=== PATIENT | female | born 1950 | race Caucasian/White ===

== ENCOUNTER 2022-12-02 23:51 | Inpatient (IN) | payer MEDICARE, OTHER ==
[~2022-12-02] VITALS: Ht 167.6 cm; Wt 66.2 kg
[2022-12-03] VITALS (75 sets, daily range): BP systolic 77–156; BP diastolic 41–107
--- NOTE | 2022-12-03 00:06 | NUR ---
BIBRA60 FROM [facility] C/O FEVER 102.1, TACHY HR127, HYPOTENSION 85/50. PT A/OX1 NONVERBAL. TOLERATING R/A WELL AT 96%. GTUBE INTACT. F/C FROM SNF AND DRAINING URINE. SAFETY MEASURES IN PLACE
--- NOTE | 2022-12-03 00:22 | NUR ---
URINE COLLECTED SENT TO LAB
--- NOTE | 2022-12-03 00:23 | NUR ---
RAC #20G S/L BLOOD COLLECTED AND SENT TO LAB
[2022-12-03] MEDS ORDERED: ACETAMINOPHEN 650 MG/SUPP.RECT RC ONE ×2 (00:26→00:30)
[2022-12-03] MEDS ORDERED: IV NS 0.9% 1,000 ML BAG IV ONE (00:30)
--- NOTE | 2022-12-03 00:33 | NUR ---
COVID ANTIGEN SWAB COLLECTED AND SENT TO LAB
[2022-12-03 00:53] LABS: BASOPHILS # (AUTO) 0.1 K/uL (0.0-0.2); BASOPHILS % (AUTO) 0.6 % (0.0-2.0); HEMATOCRIT 36 % (33-45); HEMOGLOBIN 11.4 g/dL (11.5-14.8); LYMPHOCYTES # (AUTO) 1.3 K/uL (0.8-4.8); LYMPHOCYTES % (AUTO) 13.3 % (20.0-44.0); MEAN CORPUSCULAR HGB CONC 32 g/dl (31.0-36.0); MEAN CORPUSCULAR VOLUME 88 fL (82-100); MONOCYTES # (AUTO) 0.6 K/uL (0.1-1.30); MONOCYTES % (AUTO) 6.1 % (2.0-12.0); NEUTROPHILS # (AUTO) 7.8 K/uL (1.8-8.9); PLATELET COUNT (AUTO) 449 K/uL (150-450); RED BLOOD CELL COUNT(AUTO) 4.04 MIL/uL (4.0-5.2); WHITE BLOOD COUNT (AUTO) 9.8 K/uL (4.3-11.0)
[2022-12-03 00:58] LABS: CALCIUM, SERUM 8.9 mg/dL (8.5-10.1); CARBON DIOXIDE 28 mmol/L (21-32); CHLORIDE 99 mmol/L (98-107); CREATININE 1.7 mg/dL (0.6-1.3); GLUCOSE 291 mg/dL (74-106); POTASSIUM 4.9 mmol/L (3.5-5.1); SODIUM SERUM 138 mmol/L (136-145); UREA NITROGEN, BLOOD 41 mg/dL (7-18)
[2022-12-03 01:02] LABS: BILIRUBIN,URINE NEGATIVE (NEGATIVE); COLOR,URINE DARK YELLOW (YELLOW); LEUKOCYTE ESTERASE ,URINE 3+ (NEGATIVE); NITRITE, URINE POSITIVE (NEGATIVE); PROTEIN,URINE 3+ mg/dl (NEGATIVE); UGLUCOSE 1+ mg/dL (NEGATIVE)
[2022-12-03 01:04] LABS: PH,URINE >9.0 (5.0-8.0)
--- NOTE | 2022-12-03 01:04 | NUR ---
CALLED FOR CHEST X-RAY
[2022-12-03 01:05] LABS: BACTERIA,URINE Moderate /HPF (None Seen); SQUAMOUS EPITHELIAL CELL,UR Few /HPF (None Seen); WBC,URINE 51-80 /HPF (0-3)
--- NOTE | 2022-12-03 01:07 | NUR ---
TROPONIN 157 RESULT REPORT[address] FROM LAB. DR. WASHINGTON AWARE.
--- NOTE | 2022-12-03 01:11 | NUR ---
X-RAY AT BEDSIDE
[2022-12-03 01:12] LABS: ALANINE AMINOTRANSFERASE 21 U/L (12-78); ALBUMIN 2.2 g/dL (3.4-5.0); ALKALINE PHOSPHATASE 81 U/L (46-116); ASPARTATE AMINOTRANSFERASE 16 U/L (15-37); BILIRUBIN,DIRECT 0.1 mg/dL (0.0-0.2); BILIRUBIN,TOTAL 0.5 mg/dL (0.2-1.0); TOTAL PROTEIN, SERUM 7.1 g/dL (6.4-8.2)
[2022-12-03] MEDS ORDERED: CEFTRIAXONE 1GM BAG (ER ONLY) 50 ML IV ONE (01:28)
[2022-12-03] MEDS ORDERED: ASPIRIN 300 MG/SUPP.RECT RC ONE ×2 (01:30→01:31)
[2022-12-03] MEDS ORDERED: CEFTRIAXONE 1GM BAG (ER ONLY) 1 GM/50 ML PIGGYBACK IV ONE (01:30)
[2022-12-03] MEDS ORDERED: AZITHROMYCIN 500 MG in IV D5W 250 ML IV ONE (01:30)
[2022-12-03] MEDS ORDERED: AZITHROMYCIN 500 MG VIAL ONE (01:48)
[2022-12-03] MEDS ORDERED: ALBUMIN 25% 50 ML IV ONE (02:12)
[2022-12-03] MEDS ORDERED: ALBUMIN 25% 12.5 GM/50 ML BOTTLE IV ONE (02:30)
--- NOTE | 2022-12-03 02:32 | NUR ---
LAB AT BEDSIDE
[2022-12-03] MEDS ORDERED: BALS5OIN TP (02:52)
[2022-12-03] MEDS ORDERED: ZINC220C6 PO (02:52)
[2022-12-03] MEDS ORDERED: INSU100V39 SQ (02:52)
[2022-12-03] MEDS ORDERED: GABA300C GT (02:52)
[2022-12-03] MEDS ORDERED: ASCO-352 GT (02:52)
[2022-12-03] MEDS ORDERED: MIDO5TAB4 GT (02:52)
[2022-12-03] MEDS ORDERED: LACT10SO3 GT (02:52)
[2022-12-03] MEDS ORDERED: GLIP10TA11 GT (02:52)
[2022-12-03] MEDS ORDERED: CALC-903 GT (02:52)
[2022-12-03] MEDS ORDERED: PIOG30TA10 GT (02:52)
[2022-12-03] MEDS ORDERED: ENOX40DI SQ (02:52)
[2022-12-03] MEDS ORDERED: PRAV20TA4 GT (02:52)
[2022-12-03] MEDS ORDERED: FOLI0.4T6 GT (02:52)
[2022-12-03] MEDS ORDERED: PROTEIN GT (02:52)
[2022-12-03] MEDS ORDERED: METF-442 GT (02:52)
[2022-12-03] MEDS ORDERED: OMEP1PAC7 GT (02:52)
[2022-12-03] MEDS ORDERED: DEXTROSE 50%-WATER 50 ML DISP.SYRIN IV PRN (03:30)
--- NOTE | 2022-12-03 03:56 | NUR ---
LACTIC ACID 5.[address] WASHINGTON AWARE
[2022-12-03] MEDS ORDERED: NOREPINEPHRINE 8 MG in IV NS 0.9% 242 ML IV PRN (04:00)
[2022-12-03] MEDS: MIDODRINE HCL (5MG) 5 MG TABLET PEG SCH ×4 (04:20→17:05)
--- NOTE | 2022-12-03 04:21 | NUR ---
REPORT GIVEN TO [facility] ICU
[2022-12-03] MEDS ORDERED: NOREPINEPHRINE 8MG/250ML RTU 250 ML IV ONE (04:29)
[2022-12-03] MEDS: NOREPINEPHRINE 8 MG in IV NS 0.9% 242 ML IV PRN (04:30)
--- NOTE | 2022-12-03 04:55 | NUR ---
ANIMAL HANDLER NOTES ADMITTED A 72 Y/O FEMALE PATIENT FROM ER VIA [facility], WITH DX OF UTI, 2ND DX SEPSIS WITH HX OF COPD, HTN, ENCEPHALOPATHY, GTUBE, GERD, NEUROPATHY. ON NASAL CANULA @ 2LPM SATING AT 96%. WITH TEMP- 102.5 FAHRENHEIT, NO SOB NOTED, NO S/S OF DISTRESS NOTED. WITH RAC # 20 AND LEFT WRIST # 24 PERIPHERAL LINE, FLUSHED WITH NS NO S/S OF DISTRESS NOTED. V/S TAKEN AND RECORDED. BODY ASSESSMENT DONE, PLACED PHOTO ON PT. CHART. COOLING MEASURE PROVIDED, PLACED COOLING BLANKET. ALL SAFETY PRECAUTION PROVIDED. BED IN LOWEST POSITION. LOCKED. CALL LIGHT WITH IN REACH.
--- NOTE | 2022-12-03 04:57 | NUR ---
RN NOTES RECEIVED LEVO @ 0.05 MCG/SHELLY/MIN FROM ER.
[2022-12-03] MEDS ORDERED: PIPERACILLIN /TAZOBACTAM 2.25 G in IV D5W 50 ML IV SCH (05:00)
--- NOTE | 2022-12-03 05:01 | NUR ---
PT TRANSFERED TO 258 ICU VIA ACLS PROTOCOL
[2022-12-03] MEDS ORDERED: PIPERCILLIN/TAZOBACTAM 2.25GM/D5W 50MLPB IV ONE (05:05)
[2022-12-03] MEDS: BLOOD SUGAR DIAGNOSTIC 1 EACH STRIP IN SCH ×4 (06:07→23:52)
--- NOTE | 2022-12-03 06:10 | NUR ---
RN NOTES NOTIFIED DR SOTO REGARDING LATEST BLOOD SUGAR- 407 mg/dL WITH NEW ORDER LANTUS 20 UNITS DAILY NOTED AND CARRIED OUT.
[2022-12-03] MEDS ORDERED: INSULIN REGULAR, HUMAN 100 UNIT/ML 3 ML VIAL ONE (06:11)
[2022-12-03] MEDS: INSULIN REGULAR, HUMAN 100 UNIT/ML 3 ML VIAL SQ PRN ×4 (06:16→23:53)
[2022-12-03] MEDS: ACETAMINOPHEN 650 MG/20.3 ML UDC GT PRN ×3 (06:17→22:03)
[2022-12-03] MEDS ORDERED: JEVITY 1.2 CAL 1,000 ML BOTTLE GT PRN (07:30)
[2022-12-03] MEDS: IV NS 0.9% 1,000 ML IV PRN ×2 (07:37→17:00)
[2022-12-03] MEDS ORDERED: Z GUARD REMEDY 4 OZ OINT TP PRN (08:30)
[2022-12-03] MEDS: ZINC SULFATE 220 MG CAPSULE GT SCH (08:32)
[2022-12-03] MEDS: ASCORBIC ACID 500 MG TABLET GT SCH (08:32)
[2022-12-03] MEDS: LACTULOSE 10 G/15 ML UDC (PYXIS) GT SCH ×2 (08:32→17:05)
[2022-12-03] MEDS: FOLIC ACID 1 MG TABLET GT SCH (08:33)
[2022-12-03] MEDS: CALCIUM CARBONATE (1250) 500 MG TABLET GT SCH ×2 (08:33→17:05)
[2022-12-03] MEDS: PANTOPRAZOLE 40 MG/PACK PACK GT SCH (08:33)
[2022-12-03] MEDS: HEPARIN SODIUM, PORCINE 5000 UNITS/1 ML VIAL SQ SCH ×2 (08:35→21:03)
[2022-12-03] MEDS: Z GUARD REMEDY 4 OZ OINT TP SCH (08:51)
[2022-12-03] MEDS: CLOTRIMAZOLE 1% 15 GM TUBE TP SCH ×2 (08:51→17:20)
[2022-12-03] MEDS ORDERED: CASTOR OIL TP SCH (09:00)
[2022-12-03] MEDS ORDERED: IV NS 0.9% 500 ML IV ONE (09:00)
[2022-12-03] MEDS ORDERED: BALSAM PERU TP SCH (09:00)
[2022-12-03] MEDS ORDERED: INSULIN GLARGINE, 100 UNIT/ML CARTRIDGE SQ SCH (09:00)
[2022-12-03] MEDS: PROSOURCE / PROSTAT (PYXIS) 30 ML UDC GT SCH ×2 (09:14→17:20)
[2022-12-03] MEDS: GLUCERNA 1.2 1,000 ML BOTTLE NG PRN (09:18)
[2022-12-03] MEDS ORDERED: NA P133E RC (09:45)
[2022-12-03] MEDS ORDERED: BISA10SU11 RC (09:45)
[2022-12-03] MEDS ORDERED: LACT-96 GT (09:45)
[2022-12-03] MEDS ORDERED: DOCU-141 GT (09:45)
[2022-12-03] MEDS ORDERED: SENN-261 GT (09:45)
[2022-12-03] MEDS ORDERED: MAGN400O6 GT (09:45)
[2022-12-03] MEDS ORDERED: INSU100V27 SQ (09:45)
[2022-12-03] MEDS ORDERED: ACET-868 GT (09:45)
[2022-12-03] MEDS ORDERED: MULT-447 GT (09:45)
[2022-12-03] MEDS ORDERED: CHOL100043 GT (09:45)
[2022-12-03] MEDS ORDERED: MAG30ORA PO (09:45)
--- NOTE | 2022-12-03 11:00 | NUR ---
RN NOTES HOLDING FEEDING AT THIS TIME, PT'S RESIDUAL IS 100 ML AT THIS TIME.
[2022-12-03] MEDS: PIPERACILLIN /TAZOBACTAM 2.25 G in IV D5W 50 ML IV SCH ×3 (11:52→23:46)
--- NOTE | 2022-12-03 19:22 | NUR ---
RN NOTES PT LOOKS COMFORTABLE, NO SIGNS OF PAIN AT THIS TIME. PT STILL ON LEVOPHED AND CONT IV FLUIDS. WOUND CARE COMPLETED FOR PT ON MY SHIFT. PT TOLERATED FEEDING THUS FAR. REPORT GIVEN TO JOSH REYNOSO FOR CONTINUATION OF CARE.
--- NOTE | 2022-12-03 19:30 | NUR ---
RN NOTE REPORT RECEIVED FROM MYLES REYNOSO, PT IN BED, IN NO ACUTE DISTRESS, AO X 1, BREATHING UNLABORED, SATURATION AT 100% ON 2L VIA NC, ST ON THE MONITOR, HR IS 114. IV LINE AT RAC 20G, AND L WRIST 24G PATENT AND FLUSHING WELL, WITH NS INFUSING AT 100 ML/HR, AND LEVOPHED AT 0.1 MCG/KG/MIN. GTUBE IN PLACE, POSITIVE PLACEMENT NOTED, NO RESIDUAL, GLUCERNA RUNNING AT 20 ML/HR. DASILVA CATHETER DRAINING TO A CLOUDY, YELLOW OUTPUT WITH SEDIMENTS. SAFETY MEASURES IN PLACE, BED IS LOCKED AND AT LOWEST POSITION, HOB ELEVATED, CALL LIGHT WITHIN REACH OF PATIENT. WILL CONTINUE TO MONITOR AND REASSESS.
[2022-12-03] MEDS: ATORVASTATIN 10 MG TABLET GT SCH (21:03)
[2022-12-03] MEDS: THERAHONEY GEL 1.5 OZ TUBE TP SCH (22:30)
[2022-12-04] VITALS (55 sets, daily range): BP systolic 88–135; BP diastolic 40–74
[2022-12-04] MEDS: NOREPINEPHRINE 8 MG in IV NS 0.9% 242 ML IV PRN (02:58)
[2022-12-04] MEDS: IV NS 0.9% 1,000 ML IV PRN ×2 (04:01→04:05)
[2022-12-04] MEDS: BLOOD SUGAR DIAGNOSTIC 1 EACH STRIP IN SCH ×3 (05:09→18:01)
[2022-12-04 05:10] LABS: BASOPHILS % (AUTO) 0.2 % (0.0-2.0); EOSINOPHILS % (AUTO) 0.2 % (0.0-6.0); HEMATOCRIT 28 % (33-45); LYMPHOCYTES # (AUTO) 1.2 K/uL (0.8-4.8); LYMPHOCYTES % (AUTO) 8.2 % (20.0-44.0); MEAN CORPUSCULAR HGB CONC 32 g/dl (31.0-36.0); MEAN CORPUSCULAR VOLUME 87 fL (82-100); MONOCYTES # (AUTO) 0.5 K/uL (0.1-1.30); MONOCYTES % (AUTO) 3.4 % (2.0-12.0); NEUTROPHILS # (AUTO) 13.1 K/uL (1.8-8.9); PLATELET COUNT (AUTO) 318 K/uL (150-450); RED BLOOD CELL COUNT(AUTO) 3.26 MIL/uL (4.0-5.2); WHITE BLOOD COUNT (AUTO) 14.9 K/uL (4.3-11.0)
[2022-12-04] MEDS: INSULIN REGULAR, HUMAN 100 UNIT/ML 3 ML VIAL SQ PRN ×3 (05:10→18:00)
[2022-12-04] MEDS: ACETAMINOPHEN 650 MG/20.3 ML UDC GT PRN (06:00)
[2022-12-04 07:02] LABS: CALCIUM, SERUM 7.9 mg/dL (8.5-10.1); CARBON DIOXIDE 22 mmol/L (21-32); CHLORIDE 104 mmol/L (98-107); CREATININE 0.7 mg/dL (0.6-1.3); GLUCOSE 315 mg/dL (74-106); UREA NITROGEN, BLOOD 27 mg/dL (7-18)
[2022-12-04 07:11] LABS: SODIUM SERUM 138 mmol/L (136-145)
[2022-12-04 07:14] LABS: POTASSIUM 2.7 mmol/L (3.5-5.1)
--- NOTE | 2022-12-04 07:47 | NUR ---
ICU/RN PT IS RESTING .ON 2L N/C SAT O2-92%.AWAKE,ALERT.CONFUSED AND AGGRESSIVE.ON LEVOPHED DRIP.RIGHT UPPER ARM PICC LINE.T-99.9.G-TUBE INFUSING WITH GLUCERNA.F/C DRAINING WITH YELLOW URINE.RECTAL TUBE DRAINING WITH BROWN LIQUID STOOL. REPOSITION FOR COMFORT.LABS REVIEW K-2.7. MD NOTIFIED.PT IS ON LACTULOSE BID.
[2022-12-04] MEDS: LACTULOSE 10 G/15 ML UDC (PYXIS) GT SCH (07:53)
[2022-12-04] MEDS: ASCORBIC ACID 500 MG TABLET GT SCH (08:15)
[2022-12-04] MEDS: PROSOURCE / PROSTAT (PYXIS) 30 ML UDC GT SCH ×2 (08:15→16:15)
[2022-12-04] MEDS: FOLIC ACID 1 MG TABLET GT SCH (08:15)
[2022-12-04] MEDS: PANTOPRAZOLE 40 MG/PACK PACK GT SCH (08:15)
[2022-12-04] MEDS: CALCIUM CARBONATE (1250) 500 MG TABLET GT SCH ×2 (08:15→16:14)
[2022-12-04] MEDS: ZINC SULFATE 220 MG CAPSULE GT SCH (08:16)
[2022-12-04] MEDS: CLOTRIMAZOLE 1% 15 GM TUBE TP SCH ×2 (08:16→16:15)
[2022-12-04] MEDS: MIDODRINE HCL (5MG) 5 MG TABLET PEG SCH ×3 (08:16→16:14)
[2022-12-04] MEDS: THERAHONEY GEL 1.5 OZ TUBE TP SCH (08:17)
[2022-12-04] MEDS: Z GUARD REMEDY 4 OZ OINT TP SCH (08:17)
[2022-12-04] MEDS: HEPARIN SODIUM, PORCINE 5000 UNITS/1 ML VIAL SQ SCH ×2 (08:20→21:18)
[2022-12-04] MEDS: POTASSIUM CHLORIDE 20 MEQ TAB.PRT.SR PO ONE ×2 (08:30→09:19)
[2022-12-04] MEDS ORDERED: IV NS 0.9% 500 ML IV ONE (08:30)
[2022-12-04] MEDS ORDERED: Potassium Chloride 20 MEQ in IV NS 0.9% 1,000 ML IV PRN (08:30)
[2022-12-04] MEDS ORDERED: INSULIN GLARGINE, 100 UNIT/ML CARTRIDGE SQ SCH ×2 (09:00)
[2022-12-04] MEDS ORDERED: PIPERACILLIN /TAZOBACTAM 3.375 G in IV D5W 100 ML IV SCH (09:00)
--- NOTE | 2022-12-04 09:00 | NUR ---
ICU/RN UNABLE TO GIVE KDUR 80 MEQ VIA G-TUBE. KLOR ORDERED. KDURE WASTED.PHARMACY NOTIFIED
[2022-12-04] MEDS: PIPERACILLIN /TAZOBACTAM 3.375 G in IV D5W 100 ML IV SCH ×2 (12:11→21:17)
[2022-12-04] MEDS: GLUCERNA 1.2 1,000 ML BOTTLE NG PRN (12:23)
[2022-12-04] MEDS ORDERED: POTASSIUM CHLORIDE 20 MEQ POWDER PACKET GT ONE (13:00)
[2022-12-04] MEDS: Potassium Chloride 20 MEQ in IV NS 0.9% 1,000 ML IV SCH ×2 (14:04→19:05)
[2022-12-04] MEDS: ATORVASTATIN 10 MG TABLET GT SCH (21:18)
[2022-12-05] VITALS (21 sets, daily range): BP systolic 89–133; BP diastolic 48–76
[2022-12-05] MEDS: BLOOD SUGAR DIAGNOSTIC 1 EACH STRIP IN SCH ×5 (00:27→23:29)
[2022-12-05] MEDS: INSULIN REGULAR, HUMAN 100 UNIT/ML 3 ML VIAL SQ PRN ×5 (00:34→23:39)
--- NOTE | 2022-12-05 01:22 | NUR ---
MS RN OPENING NOTE RECEIVED PATIENT FROM AM NURSE; PATIENT IS A/O X 0-1, CONFUSED; STABLE ON ROOM AIR, BREATHING EVENLY AND NO S/S OF DISTRESS NOTED; NOTED TO BE COMBATIVE AND AGGRESSIVE; WITH PICC LINE ACCESS AT YOUNG AND RAC G#20 EUNNING WITH NS KCL 20MEQ AT 100 ML/HR; ON LEFT HAND RESTRAINT FOR PATIENT'S SAFETY; WITH FLEXISEAL IN PLACE; WITH DASILVA CATH IN PLACE DRAINING TO YELLOW COLORED URINE; SAFETY MEASURES IMPLEMENTED, BED LOCKED IN LOWEST POSITION, SIDE RAILS UP X 3, HEAD OF BED ELEVATED; CALL LIGHT WITHIN REACH; WILL CONTINUE TO MONITOR THROUGHOUT SHIFT Addendum: 12/06/22 at 0126 by KATHERINE MOJICA RN ERROR. WRONG TIME ENTRY
[2022-12-05] MEDS: Potassium Chloride 20 MEQ in IV NS 0.9% 1,000 ML IV SCH ×2 (04:46→14:43)
[2022-12-05] MEDS: PIPERACILLIN /TAZOBACTAM 3.375 G in IV D5W 100 ML IV SCH ×3 (04:46→21:36)
[2022-12-05 05:01] LABS: BASOPHILS % (AUTO) 0.3 % (0.0-2.0); EOSINOPHILS % (AUTO) 1.1 % (0.0-6.0); HEMATOCRIT 22 % (33-45); LYMPHOCYTES # (AUTO) 1.2 K/uL (0.8-4.8); LYMPHOCYTES % (AUTO) 9.8 % (20.0-44.0); MEAN CORPUSCULAR HGB CONC 32 g/dl (31.0-36.0); MEAN CORPUSCULAR VOLUME 87 fL (82-100); MONOCYTES # (AUTO) 0.6 K/uL (0.1-1.30); MONOCYTES % (AUTO) 4.5 % (2.0-12.0); NEUTROPHILS # (AUTO) 10.4 K/uL (1.8-8.9); NEUTROPHILS % (AUTO) 84.3 % (43.0-81.0); PLATELET COUNT (AUTO) 257 K/uL (150-450); RED BLOOD CELL COUNT(AUTO) 2.54 MIL/uL (4.0-5.2); WHITE BLOOD COUNT (AUTO) 12.3 K/uL (4.3-11.0)
[2022-12-05 05:12] LABS: CALCIUM, SERUM 7.9 mg/dL (8.5-10.1); CARBON DIOXIDE 23 mmol/L (21-32); CREATININE 0.5 mg/dL (0.6-1.3); GLUCOSE 174 mg/dL (74-106); MAGNESIUM 1.8 mg/dL (1.8-2.4); UREA NITROGEN, BLOOD 21 mg/dL (7-18)
[2022-12-05 05:15] LABS: IRON, SERUM 11 ug/dl (50-175); TOTAL IRON BINDING CAPACITY 111 ug/dl (250-450)
[2022-12-05 05:18] LABS: CHLORIDE 113 mmol/L (98-107); POTASSIUM 4.3 mmol/L (3.5-5.1); SODIUM SERUM 145 mmol/L (136-145)
--- NOTE | 2022-12-05 06:08 | NUR ---
ICU/RN: H/H 7. RELAYED TO DR. SOTO AWAITING REPLY.
--- NOTE | 2022-12-05 06:13 | NUR ---
ICU/RN: SPOKE WITH DR. SOTO 1UNIT PRBC ORDERED.
--- NOTE | 2022-12-05 06:26 | NUR ---
ICU/RN: CONSENT FOR BLOOD TRANSFUSION OBTAINED BY TELEPHONE BY KADE. WITNESSED BY SCAFFOLD ERECTOR ED.
[2022-12-05] MEDS: MIDODRINE HCL (5MG) 5 MG TABLET PEG SCH ×3 (08:56→17:06)
[2022-12-05] MEDS: PROSOURCE / PROSTAT (PYXIS) 30 ML UDC GT SCH ×2 (08:56→17:08)
[2022-12-05] MEDS: ASCORBIC ACID 500 MG TABLET GT SCH (08:56)
[2022-12-05] MEDS: FOLIC ACID 1 MG TABLET GT SCH (08:56)
[2022-12-05] MEDS: PANTOPRAZOLE 40 MG/PACK PACK GT SCH (08:56)
[2022-12-05] MEDS: THERAHONEY GEL 1.5 OZ TUBE TP SCH (08:57)
[2022-12-05] MEDS: CLOTRIMAZOLE 1% 15 GM TUBE TP SCH ×2 (08:57→17:08)
[2022-12-05] MEDS: HEPARIN SODIUM, PORCINE 5000 UNITS/1 ML VIAL SQ SCH ×2 (08:58→21:00)
--- NOTE | 2022-12-05 08:59 | NUR ---
RN NOTES HELD BLOOD THINNER AT THIS TIME DUE TO LOW HGB AT 7.
[2022-12-05] MEDS ORDERED: INSULIN GLARGINE, 100 UNIT/ML CARTRIDGE SQ SCH (09:00)
[2022-12-05] MEDS: Z GUARD REMEDY 4 OZ OINT TP SCH (09:01)
[2022-12-05] MEDS: CALCIUM CARBONATE (1250) 500 MG TABLET GT SCH ×2 (09:10→17:06)
[2022-12-05] MEDS: ZINC SULFATE 220 MG CAPSULE GT SCH (09:10)
[2022-12-05] MEDS: GLUCERNA 1.2 1,000 ML BOTTLE NG PRN (11:10)
[2022-12-05] MEDS: SOD FERRIC GLUC 125 MG in IV NS 0.9% 100 ML IV SCH (14:27)
--- NOTE | 2022-12-05 17:15 | NUR ---
RN CLOSING NOTES PT LOOKS COMFORTABLE, NO VISUAL SIGNS OF PAIN AT THIS TIME, STABLE. PT BEING DOWNGRADED TO MED/SURG STATUS IN ROOM 120. REPORT GIVEN TO IDALIA REYNOSO FOR CONTINUATION OF CARE.
--- NOTE | 2022-12-05 17:45 | NUR ---
VOCATIONAL GUIDANCE COUNSELOR NOTE PATIENT BROUGHT FROM ICU , PATIENT IS ON ROOM AIR , O2 SAT 98 % ,BREATHING NON LABORED ALERT , CONFUSED, COMBATIVE, HAS LEFT HAND RESTRAIN , DUE TO TRYING TO REMOVE IV LINES ,IV ACCESS ON YOUNG PICC LINE , RAC 20 G RUNNING NS KCL20 MEQ AT 100 ML/HR , PATIENT HAD ONE UNIT OF BLOOD TRANSFUSED EARLIER TODAY AT ICU , HAS FLEXESEAL AND DASILVA CATH DRAINING CLEAR YELLOW URINE , ALSO PATIENT HAS DTI ON COCCUX AREA WITH WOUND TREATMENT: CLEASE WITH NS , PAT DRY , APPLY TERAHONEY , COVER WITH MEPILEX EVERY SHIFT .WILL CONTINUE TO MONITOR
--- NOTE | 2022-12-05 18:36 | NUR ---
RN CLOSING NOTE PATIENT IS ON ROOM AIR , O2 SAT 98 % ,BREATHING NON LABORED ALERT , CONFUSED, COMBATIVE, HAS LEFT HAND RESTRAIN , DUE TO TRYING TO REMOVE IV LINES ,IV ACCESS ON YOUNG PICC LINE , RAC 20 G RUNNING NS KCL20 MEQ AT 100 ML/HR , PATIENT HAD ONE UNIT OF BLOOD TRANSFUSED EARLIER TODAY AT ICU , HAS FLEXESEAL AND DASILVA CATH DRAINING CLEAR YELLOW URINE , ALSO PATIENT HAS DTI ON COCCUX AREA WITH WOUND TREATMENT: CLEASE WITH NS , PAT DRY , APPLY TERAHONEY , COVER WITH MEPILEX EVERY SHIFT .DELORES FIELD MARKETING COORDINATOR NURSE FOR YUE.
--- NOTE | 2022-12-05 19:30 | NUR ---
MS RN OPENING NOTE RECEIVED PATIENT FROM AM NURSE; PATIENT IS A/O X 0-1, CONFUSED; STABLE ON ROOM AIR, BREATHING EVENLY AND NO S/S OF DISTRESS NOTED; NOTED TO BE COMBATIVE AND AGGRESSIVE; WITH PICC LINE ACCESS AT YOUNG AND RAC G#20 EUNNING WITH NS KCL 20MEQ AT 100 ML/HR; ON LEFT HAND RESTRAINT FOR PATIENT'S SAFETY; WITH FLEXISEAL IN PLACE; WITH DASILVA CATH IN PLACE DRAINING TO YELLOW COLORED URINE; SAFETY MEASURES IMPLEMENTED, BED LOCKED IN LOWEST POSITION, SIDE RAILS UP X 3, HEAD OF BED ELEVATED; CALL LIGHT WITHIN REACH; WILL CONTINUE TO MONITOR THROUGHOUT SHIFT
[2022-12-05] MEDS: ATORVASTATIN 10 MG TABLET GT SCH (22:03)
[2022-12-06] MEDS: Potassium Chloride 20 MEQ in IV NS 0.9% 1,000 ML IV SCH (01:27)
[2022-12-06] MEDS: GLUCERNA 1.2 1,000 ML BOTTLE NG PRN (03:46)
[2022-12-06] MEDS: PIPERACILLIN /TAZOBACTAM 3.375 G in IV D5W 100 ML IV SCH ×3 (04:32→22:09)
[2022-12-06] MEDS: BLOOD SUGAR DIAGNOSTIC 1 EACH STRIP IN SCH ×4 (05:43→23:39)
[2022-12-06] MEDS: INSULIN REGULAR, HUMAN 100 UNIT/ML 3 ML VIAL SQ PRN ×3 (05:49→18:09)
--- NOTE | 2022-12-06 06:53 | NUR ---
MS RN CLOSING NOTE PATIENT IS A/O X 0-1, CONFUSED; STABLE ON ROOM AIR, BREATHING EVENLY AND NO S/S OF DISTRESS NOTED; NOTED TO BE COMBATIVE AND AGGRESSIVE; WITH PICC LINE ACCESS AT YOUNG RUNNING WITH ZOSYN AT THIS TIME AND RAC G#20 RUNNING WITH NS KCL 20MEQ AT 100 ML/HR; ON LEFT HAND RESTRAINT FOR PATIENT'S SAFETY; WITH FLEXISEAL IN PLACE DRAINING TO LIGHT BROWN LIQUID CONSISTENCY STOOL; WITH DASILVA CATH IN PLACE DRAINING TO YELLOW COLORED URINE; WOUND CARE DONE; ADMINISTERED MEDICATIONS PRESCRIBED; PATIENT'S NEEDS ATTENDED; MONITORED PATIENT ACCORDINGLY; SAFETY MEASURES IMPLEMENTED, BED LOCKED IN LOWEST POSITION, SIDE RAILS UP X 3; CALL LIGHT WITHIN REACH; WILL ENDORSE TO AM NURSE FOR YUE.
--- NOTE | 2022-12-06 07:10 | NUR ---
REGIONAL PRODUCTION MANAGER OPENING NOTE PATIENT AWAKE, CONFUSED, ON RA 02 SAT 97% NO RESPIRATORY DISTRESS NOTED, HOB ELEVATED, GT- FEEDING AT 60ML/HR TOLERATING WELL NO RESIDUAL NOTED. IV ACCESS TO RAC INTACT AND LEFT UPPER ARM PICC LINE INTACT. COMFORT MEASURES IN PLACE. BED ELEVATED SIDE RAILS UP X4, ON BILATERAL WRIST RESTRAINS FOLLOWING PROTOCOL. CALL LIGHT, TABLE WITHIN REACH. CONT. TO MONITOR.
[2022-12-06 08:40] LABS: BASOPHILS % (AUTO) 0.6 % (0.0-2.0); EOSINOPHILS % (AUTO) 1.4 % (0.0-6.0); HEMATOCRIT 27 % (33-45); HEMOGLOBIN 8.8 g/dL (11.5-14.8); LYMPHOCYTES # (AUTO) 1.2 K/uL (0.8-4.8); LYMPHOCYTES % (AUTO) 13.4 % (20.0-44.0); MEAN CORPUSCULAR HGB CONC 32 g/dl (31.0-36.0); MEAN CORPUSCULAR VOLUME 88 fL (82-100); MONOCYTES # (AUTO) 0.4 K/uL (0.1-1.30); NEUTROPHILS # (AUTO) 6.9 K/uL (1.8-8.9); NEUTROPHILS % (AUTO) 79.6 % (43.0-81.0); PLATELET COUNT (AUTO) 237 K/uL (150-450); RED BLOOD CELL COUNT(AUTO) 3.08 MIL/uL (4.0-5.2); WHITE BLOOD COUNT (AUTO) 8.7 K/uL (4.3-11.0)
[2022-12-06 08:47] LABS: CALCIUM, SERUM 7.5 mg/dL (8.5-10.1); CARBON DIOXIDE 23 mmol/L (21-32); CHLORIDE 112 mmol/L (98-107); CREATININE 0.5 mg/dL (0.6-1.3); GLUCOSE 212 mg/dL (74-106); SODIUM SERUM 145 mmol/L (136-145); UREA NITROGEN, BLOOD 16 mg/dL (7-18)
[2022-12-06] MEDS: Z GUARD REMEDY 4 OZ OINT TP SCH (09:00)
[2022-12-06] MEDS: CLOTRIMAZOLE 1% 15 GM TUBE TP SCH ×2 (09:00→17:00)
[2022-12-06] MEDS: THERAHONEY GEL 1.5 OZ TUBE TP SCH (09:00)
[2022-12-06] MEDS: INSULIN GLARGINE, 100 UNIT/ML CARTRIDGE SQ SCH ×2 (09:00→12:43)
[2022-12-06] MEDS: ASCORBIC ACID 500 MG TABLET GT SCH (10:38)
[2022-12-06] MEDS: ZINC SULFATE 220 MG CAPSULE GT SCH (10:38)
[2022-12-06] MEDS: FOLIC ACID 1 MG TABLET GT SCH (10:39)
[2022-12-06] MEDS: CALCIUM CARBONATE (1250) 500 MG TABLET GT SCH ×2 (10:39→17:00)
[2022-12-06] MEDS: PANTOPRAZOLE 40 MG/PACK PACK GT SCH (10:39)
[2022-12-06] MEDS: PROSOURCE / PROSTAT (PYXIS) 30 ML UDC GT SCH ×2 (10:40→18:40)
[2022-12-06] MEDS: MIDODRINE HCL (5MG) 5 MG TABLET PEG SCH ×3 (10:41→17:03)
[2022-12-06] MEDS: HEPARIN SODIUM, PORCINE 5000 UNITS/1 ML VIAL SQ SCH ×2 (10:49→22:10)
[2022-12-06] MEDS: SOD FERRIC GLUC 125 MG in IV NS 0.9% 100 ML IV SCH (15:35)
--- NOTE | 2022-12-06 18:35 | NUR ---
RAVELER NOTE LAB CALLED ME THE BLOOD CULTURE COLLECTED 12/05/22 RESULT IS GRAM NEGATIVE RODS. TEXT SENT TO DR. PARKER, CHARGE NURSE SOON NOTIFIED.
--- NOTE | 2022-12-06 19:30 | NUR ---
SUPERVISOR FUR DRESSING NOTE CHARLES DE LEON SAID OK. ABOUT BLOOD CULTURE RESULT.
--- NOTE | 2022-12-06 19:30 | NUR ---
DIRECTOR DIABETES CLOSING NOTE PATIENT AWAKE BUT CONFUSED, ON ROOM AIR 96% SAT. HOB ELEVATED, NO SOB NOTED, G-TUBE FEEDING WITH NO RESIDUAL. PATIENT HAS RECTAL TUBE AND IS LEAKING SMALL AMOUNT NOTED. PATIENT CLEANED AND WOUND CARE PERFORMED. F/C DRAINING LARGE AMOUNT CLEAR GINI URINE. IV SITE INTACT AND PICC LINE INTACT. PATIENT RECEIVED MULTIPLE ANTIBIOTICS AND FERRLECIT IV ALSO. SAFETY MEASURES IN PLACE. BED LOCKED TO THE LOWEST POSITION, SIDE RAILS UP X4, SOFT WRIST RESTRAINTS IN PLACE PER PROTOCOL. I WILL ENDORSE TO THE FOLLOWING NURSE.
--- NOTE | 2022-12-06 19:36 | NUR ---
RN OPENING NOTE: RECEIVED PATIENT IN BED AWAKE A/OX2 CONFUSED, ON ROOM AIR TOLERATING WELL SATURATION 96% SAT . HOB ELEVATED, NO SOB NOTED, BREATHING EVENLY AND UNLABORED. G-TUBE FEEDING WITH NO RESIDUAL. PATIENT HAS RECTAL TUBE NOTED TO BE IN PLACED AND INTACT. WITH DASILVA CATHETER DRAINING CLEAR GINI URINE NOTED. IV SITE ON RIGHT AC #20 NOTED TO BE INTACT AND PATENT, PICC LINE ON LEFT UPPER ARM NOTED TO BE INTACT. WITH MEDICAL SOFT WRIST RESTRAINT ON LEFT HAND DUE TO PATIENT PULLING OUT IV ACCESS AND GASTRIC TUBE. LEFT HAND ASSESSED NOTED TO HAVE GOOD CIRCULATION. SAFETY MEASURES IN PLACED; BED LOCKED TO THE LOWEST POSITION, SIDE RAILS UP X4, HOB ELEVATED, CALL LIGHT AND BEDSIDE TABLE WITHIN PATIENT REACH.
[2022-12-06 22:00] VITALS: BP 142/69
[2022-12-06] MEDS: ATORVASTATIN 10 MG TABLET GT SCH (22:09)
[2022-12-07] MEDS: PIPERACILLIN /TAZOBACTAM 3.375 G in IV D5W 100 ML IV SCH ×3 (05:26→21:19)
--- NOTE | 2022-12-07 05:30 | NUR ---
RN NOTE CHANGED DASILVA CATHETER OF THE PATIENT. KEPT FLEXISEAL IN PLACED.
[2022-12-07] MEDS: BLOOD SUGAR DIAGNOSTIC 1 EACH STRIP IN SCH ×4 (05:41→23:55)
--- NOTE | 2022-12-07 06:37 | NUR ---
RN CLOSING NOTE: PATIENT IN BED AWAKE A/OX2 CONFUSED, ON ROOM AIR TOLERATING WELL SATURATION 96% SAT . HOB ELEVATED, NO SOB NOTED, BREATHING EVENLY AND UNLABORED. G-TUBE FEEDING WITH NO RESIDUAL. PATIENT HAS RECTAL TUBE NOTED TO BE IN PLACED AND INTACT. WITH DASILVA CATHETER DRAINING CLEAR GINI URINE NOTED. IV SITE ON RIGHT AC #20 NOTED TO BE INTACT AND PATENT, PICC LINE ON LEFT UPPER ARM NOTED TO BE INTACT. WITH MEDICAL SOFT WRIST RESTRAINT ON LEFT HAND DUE TO PATIENT PULLING OUT IV ACCESS AND GASTRIC TUBE. LEFT HAND ASSESSED NOTED TO HAVE GOOD CIRCULATION. ALL DUE MEDICATIONS GIVEN. ALL NEEDS ARE MET. REPOSITIONED PATIENT Q2H ALL THROUGH OUT THE NIGHT. MADE SURE PATIENT IS KEPT CLEAN AND COMFORTABLE. NO COMPLAINS OF PAIN AT THIS TIME. NOT IN DISTRESS NOTED. SAFETY MEASURES IN PLACED; BED LOCKED TO THE LOWEST POSITION, SIDE RAILS UP X4, HOB ELEVATED, CALL LIGHT AND BEDSIDE TABLE WITHIN PATIENT REACH. WILL ENDORSE TO NEXT SHIFT NURSE FOR CONTINUITY OF CARE.
--- NOTE | 2022-12-07 07:10 | NUR ---
RESIDENT ASSISTANT CNA OPENING NOTE PATIENT AWAKE AND CONFUSED. ON ROOM AIR O2; SAT 95%, NO S/S OF RESPIRATORY DISTRESS NOTED. HOB ELEVATED. G-TUBE FEEDING GLUCERNA 1.2 AT 60ML/HR NO RESIDUAL NOTED. YOUNG ;PICC LINE INTACT. RAC#20 INTACT. F/C IN PLACE DRAINING MODERATE AMOUNT OF CLEAR GINI URINE. LEFT WRIST RESTRAIN IN PLACE, FOLLOWING PROTOCOL. SIDE RAILS UP X4. SAFETY MEASURES IN PLACE BED LOCKED TO THE LOWEST POSITION, CALL LIGHT AND TABLE WITHIN REACH. CPNT. TO MONITOR.
[2022-12-07 07:21] LABS: CARBON DIOXIDE 24 mmol/L (21-32); CHLORIDE 109 mmol/L (98-107); CREATININE 0.4 mg/dL (0.6-1.3); GLUCOSE 146 mg/dL (74-106); POTASSIUM 3.6 mmol/L (3.5-5.1); SODIUM SERUM 142 mmol/L (136-145); UREA NITROGEN, BLOOD 12 mg/dL (7-18)
[2022-12-07 07:28] LABS: BASOPHILS % (AUTO) 0.3 % (0.0-2.0); EOSINOPHILS % (AUTO) 3.4 % (0.0-6.0); HEMATOCRIT 30 % (33-45); HEMOGLOBIN 9.7 g/dL (11.5-14.8); LYMPHOCYTES # (AUTO) 1.7 K/uL (0.8-4.8); MEAN CORPUSCULAR HGB CONC 32 g/dl (31.0-36.0); MEAN CORPUSCULAR VOLUME 90 fL (82-100); MONOCYTES # (AUTO) 0.7 K/uL (0.1-1.30); MONOCYTES % (AUTO) 8.9 % (2.0-12.0); NEUTROPHILS # (AUTO) 5.6 K/uL (1.8-8.9); NEUTROPHILS % (AUTO) 67.4 % (43.0-81.0); PLATELET COUNT (AUTO) 267 K/uL (150-450); RED BLOOD CELL COUNT(AUTO) 3.37 MIL/uL (4.0-5.2); WHITE BLOOD COUNT (AUTO) 8.3 K/uL (4.3-11.0)
[2022-12-07] MEDS: THERAHONEY GEL 1.5 OZ TUBE TP SCH (09:00)
[2022-12-07] MEDS: CLOTRIMAZOLE 1% 15 GM TUBE TP SCH ×2 (09:00→16:28)
[2022-12-07] MEDS: Z GUARD REMEDY 4 OZ OINT TP SCH (09:00)
[2022-12-07] MEDS: FOLIC ACID 1 MG TABLET GT SCH (09:19)
[2022-12-07] MEDS: PANTOPRAZOLE 40 MG/PACK PACK GT SCH (09:19)
[2022-12-07] MEDS: ZINC SULFATE 220 MG CAPSULE GT SCH (09:20)
[2022-12-07] MEDS: CALCIUM CARBONATE (1250) 500 MG TABLET GT SCH ×2 (09:20→16:28)
[2022-12-07] MEDS: ASCORBIC ACID 500 MG TABLET GT SCH (09:20)
[2022-12-07] MEDS: MIDODRINE HCL (5MG) 5 MG TABLET PEG SCH ×3 (09:20→16:26)
[2022-12-07] MEDS: HEPARIN SODIUM, PORCINE 5000 UNITS/1 ML VIAL SQ SCH ×2 (09:36→21:24)
[2022-12-07] MEDS: PROSOURCE / PROSTAT (PYXIS) 30 ML UDC GT SCH ×2 (09:44→16:28)
[2022-12-07] MEDS: INSULIN GLARGINE, 100 UNIT/ML CARTRIDGE SQ SCH (09:44)
[2022-12-07 09:47] LABS: BAND % (MANUAL) 2 % (0.0-5.0); EOSINOPHILS % (MANUAL) 6 % (0-4); LYMPHOCYTES % (MANUAL) 22 % (16-48); MONOCYTES % (MANUAL) 2 % (0-11.0); NEUTROPHILS % (MANUAL) 68 (42-76)
[2022-12-07] MEDS: SOD FERRIC GLUC 125 MG in IV NS 0.9% 100 ML IV SCH (16:21)
[2022-12-07] MEDS: INSULIN REGULAR, HUMAN 100 UNIT/ML 3 ML VIAL SQ PRN (18:19)
--- NOTE | 2022-12-07 19:00 | NUR ---
TRACK RIDER CLOSING NOTE PATIENT AWAKE, CONFUSED. ON ROOM AIR, O2 SAT 95% NO S/S OF RESPIRATORY DISTRESS NOTED. HOB ELEVATED ALL TIME. G-TUBE FEEDING TOLERATING WELL, NO RESIDUAL NOTED. F/C DRAINING GINI YELLOW URINE. FLEXI-SEAL IN PLACE MILD LEAKING NOTED. WOUND CARE PERFORMED DIRECTED. YOUNG PICC LINE WORKING. RAC IV SITE INTACT. LEFT WRIST RESTRAIN IN PLACE FOLLOWING PROTOCOL. SAFETY MEASURES IN PLACE. BED LOCKED TO THE LOWEST POSITION. SIDE RAILS UP X4. i WILL ENDORSE TO THE FOLLOWING NURSE.
--- NOTE | 2022-12-07 19:30 | NUR ---
MS RN OPENING NOTE: RECEIVED PATIENT IN BED AWAKE A/OX1 WITH CONFUSION. WHILE ENTERED THE ROOM AND INTRODUCED MYSELF PATIENT STARTED TO YELL AND CURSING ME, HOSPITAL AND ALL THE STAFF. REORIENT THE PATIENT THAT SHE IS IN HOSPITAL AND WE ARE HERE TO HELP HER TO GET WELL . ON ROOM AIR TOLERATING WELL. HOB ELEVATED, NO SOB NOTED, BREATHING EVEN AND UNLABORED. ON G-TUBE FEEDING OF GLUCERNA 1.2 AT 60 CC/HR. NO RESIDUAL. PATIENT HAS RECTAL TUBE NOTED TO BE IN PLACED AND INTACT. WITH DASILVA CATHETER DRAINING URINE VIA GRAVITY. IV SITE ON RIGHT AC #20 NOTED TO BE INTACT AND PATENT, PICC LINE ON LEFT UPPER ARM NOTED TO BE INTACT. MEDICAL SOFT WRIST RESTRAINT ON LEFT HAND IN PLACE . SKIN AND CIRCULATION CHECKS DONE FREQUENTLY. ALL SAFETY MEASURES IN PLACED; BED LOCKED TO THE LOWEST POSITION, SIDE RAILS UP X4, HOB ELEVATED, CALL LIGHT WITHIN PATIENT REACH. WILL CONTINUE TO MONITOR CLOSELY.
[2022-12-07] MEDS: ATORVASTATIN 10 MG TABLET GT SCH (21:20)
[2022-12-08] MEDS: GLUCERNA 1.2 1,000 ML BOTTLE NG PRN ×2 (01:57→22:47)
[2022-12-08] MEDS: PIPERACILLIN /TAZOBACTAM 3.375 G in IV D5W 100 ML IV SCH ×3 (04:24→21:27)
[2022-12-08] MEDS: BLOOD SUGAR DIAGNOSTIC 1 EACH STRIP IN SCH ×3 (06:00→17:56)
--- NOTE | 2022-12-08 06:39 | NUR ---
MS RN CLOSING NOTE: PATIENT IN BED AWAKE A/OX1 WITH CONFUSION. WHILE ENTERED THE ROOM AND INTRODUCED MYSELF PATIENT AGAIN STARTED TO YELL AND CURSING ME, HOSPITAL AND ALL THE STAFF. REORIENT THE PATIENT THAT SHE IS IN HOSPITAL AND WE ARE HERE TO HELP HER TO GET WELL . PATIENT STILL CURSING AND YELLING. ON ROOM AIR TOLERATING WELL. HOB ELEVATED, NO SOB NOTED, BREATHING EVEN AND UNLABORED. ON G-TUBE FEEDING OF GLUCERNA 1.2 AT 60 CC/HR. NO RESIDUAL. PATIENT HAS RECTAL TUBE NOTED TO BE IN PLACED AND INTACT. WITH DASILVA CATHETER DRAINING URINE VIA GRAVITY. IV SITE ON RIGHT AC #20 NOTED TO BE INTACT AND PATENT, PICC LINE ON LEFT UPPER ARM NOTED TO BE INTACT. MEDICAL SOFT WRIST RESTRAINT ON LEFT HAND IN PLACE . SKIN AND CIRCULATION CHECKS DONE FREQUENTLY. ALL DUE MEDS GIVEN ORDERED. 0000 BLOOD SUGAR NOTED 114. NO INSULIN GIVEN. PATIENT REFUSED 0600 BLOOD SUGAR CHECK. ALL SAFETY MEASURES IN PLACED; BED LOCKED TO THE LOWEST POSITION, SIDE RAILS UP X4, HOB ELEVATED, CALL LIGHT WITHIN PATIENT REACH. PATIENT ALSO REFUSED MORNING CARE.WILL ENDORSE FOR YUE.
[2022-12-08 07:00] VITALS: BP 136/78
--- NOTE | 2022-12-08 07:00 | NUR ---
IN PROCESS INSPECTOR OPENING NOTE PATIENT AWAKE,CONFUSED. 0N ROOM AIR 02 SAT 100%, NO S/S OF RESPIRATORY DISTRESS NOTED. HOB ELEVATED, G-TUBE FEEDING NO RESIDUAL NOTED GLUCERNA 1.2 ME IV TO LAC INTACT. YOUNG PICC LINE INTACT. F/C DRAINING CLEAR GINI URINE, FLEXI-SEAL IN PLACE WITH SMALL DRAINING SMALL AMOUNT OF DARK STOOL. SAFETY MEASURES IN PLACE BED LOCKED TO THE LOWEST POSITION, SIDE RAILS UP X4 LEFT WRIST RESTRAIN IN PLACE. CONT. TO MONITOR.
[2022-12-08] MEDS ORDERED: Insulin Glargine,Hum SQ (08:35)
[2022-12-08] MEDS ORDERED: PIPE3.379 IV (08:35)
[2022-12-08] MEDS: CLOTRIMAZOLE 1% 15 GM TUBE TP SCH ×2 (09:00→17:33)
[2022-12-08] MEDS: Z GUARD REMEDY 4 OZ OINT TP SCH (09:00)
[2022-12-08] MEDS: THERAHONEY GEL 1.5 OZ TUBE TP SCH (09:00)
[2022-12-08] MEDS: FOLIC ACID 1 MG TABLET GT SCH (09:19)
[2022-12-08] MEDS: ZINC SULFATE 220 MG CAPSULE GT SCH (09:19)
[2022-12-08] MEDS: ASCORBIC ACID 500 MG TABLET GT SCH (09:20)
[2022-12-08] MEDS: MIDODRINE HCL (5MG) 5 MG TABLET GT SCH ×3 (09:22→17:33)
[2022-12-08] MEDS: HEPARIN SODIUM, PORCINE 5000 UNITS/1 ML VIAL SQ SCH ×2 (09:24→21:39)
[2022-12-08] MEDS: CALCIUM CARBONATE (1250) 500 MG TABLET GT SCH ×2 (09:24→17:32)
[2022-12-08] MEDS: PANTOPRAZOLE 40 MG/PACK PACK GT SCH (09:25)
[2022-12-08] MEDS: INSULIN GLARGINE, 100 UNIT/ML CARTRIDGE SQ SCH (09:34)
[2022-12-08] MEDS: PROSOURCE / PROSTAT (PYXIS) 30 ML UDC GT SCH ×2 (09:39→17:33)
[2022-12-08 10:00] VITALS: BP 149/82
[2022-12-08] MEDS: INSULIN REGULAR, HUMAN 100 UNIT/ML 3 ML VIAL SQ PRN ×2 (12:43→17:55)
[2022-12-08] MEDS: SOD FERRIC GLUC 125 MG in IV NS 0.9% 100 ML IV SCH (15:56)
--- NOTE | 2022-12-08 19:00 | NUR ---
SERVICE CONSULTANT CLOSING NOTE PATIENT CALM, AWAKE, CONFUSED. ON ROOM AIR NO S/S OF RESPIRATORY DISTRESS NOTED. G-TUBE FEEDING TOLERATING WELL NO RESIDUAL. F/C DRAINING CLOUDY YELLOW URINE. FLEXISEAL IN PLACE DRAINING SMALL AMOUNT. SACRAL WOUND PERFORMED DIRECTED. SAFETY MEASURES IN PLACE, BED LOCKED TO THE LOWESWT POSITION. PLAN TO D/C TO SNF. I WILL ENDORSE TO THE FOLLOWING NURSE.
--- NOTE | 2022-12-08 19:30 | NUR ---
MS RN OPENING NOTE RECEIVED PATIENT IN BED; AWAKE, ALERT AND ORIENTED X 1 WITH PERIODS OF CONFUSION. PATIENT STARTED YELLING AND CURSING WHEN I INTRODUCED MYSELF. ON ROOM AIR; TOLERATING WELL. BREATHING EVEN AND NONLABORED. NO S/SX OF PAIN OR DISCOMFORT NOTED AT THIS TIME. ON GLUCERNA 1.2 FEEDING RUNNING @ 60 CC/HR. NO RESIDUAL NOTED. WITH DASILVA CATHETER IN PLACE DRAINING VIA GRAVITY TO YELLOW URINE OUTPUT. WITH FLEXISEAL TUBE IN PLACE; INTACT. WITH IV ACCESS ON RIGHT AC 20g; INTACT AND PATENT. WITH LEFT UPPER ARM MIDLINE; PATENT, INTACT AND SALINE LOCKED. WITH LEFT HAND SOFT WRIST RESTRAINT IN PLACE; SKIN AND CIRCULATION CHECKED; WNL. SAFETY MEASURES IMPLEMENTED: HEAD OF BED ELEVATED, CALL LIGHT AND TABLE WITHIN REACH, SIDE RAILS UP X 3, BED IN LOWEST LOCKED POSITION. WILL CONTINUE TO MONITOR THROUGHOUT SHIFT.
[2022-12-08] MEDS: ATORVASTATIN 10 MG TABLET GT SCH (21:28)
--- NOTE | 2022-12-08 22:15 | NUR ---
RN NOTE PATIENT REFUSED TO HAVE HER VITAL SIGNS CHECKED.
[2022-12-09] MEDS: BLOOD SUGAR DIAGNOSTIC 1 EACH STRIP IN SCH ×4 (00:57→17:58)
[2022-12-09] MEDS: INSULIN REGULAR, HUMAN 100 UNIT/ML 3 ML VIAL SQ PRN ×3 (01:04→13:21)
--- NOTE | 2022-12-09 01:04 | NUR ---
RN NOTE BLOOD SUGAR-148 MG/DL. 2 UNITS OF REGULAR INSULIN GIVEN SQ ORDERED PER SLIDING SCALE. WILL CONTINUE TO MONITOR PATIENT.
[2022-12-09 05:00] VITALS: BP 147/76
[2022-12-09] MEDS: PIPERACILLIN /TAZOBACTAM 3.375 G in IV D5W 100 ML IV SCH ×3 (05:19→22:02)
--- NOTE | 2022-12-09 06:35 | NUR ---
MS RN CLOSING NOTE PATIENT IN BED; AWAKE, A/O X 1. STILL WITH PERIODS OF CONFUSION. STABLE ON ROOM AIR. IN NO ACUTE DISTRESS. NO S/SX OF PAIN OR DISCOMFORT NOTED AT THIS TIME. ON GLUCERNA 1.2 GT FEEDING RUNNING @ 60 CC/HR. NO RESIDUAL NOTED. WITH DASILVA CATHETER IN PLACE DRAINING VIA GRAVITY TO YELLOW URINE OUTPUT. WITH FLEXISEAL TUBE IN PLACE; INTACT. WITH IV ACCESS ON RIGHT AC 20g; INTACT AND PATENT. WITH LEFT UPPER ARM MIDLINE; PATENT, INTACT AND SALINE LOCKED. WITH LEFT HAND SOFT WRIST RESTRAINT IN PLACE; SKIN AND CIRCULATION CHECKED; WNL. SAFETY MEASURES MAINTAINED: HEAD OF BED ELEVATED, CALL LIGHT AND TABLE WITHIN REACH, SIDE RAILS UP X 3, BED IN LOWEST LOCKED POSITION. ENDORSED TO MORNING SHIFT FOR CONTINUITY OF CARE.
--- NOTE | 2022-12-09 06:36 | NUR ---
RN NOTE BLOOD SUGAR-165 MG/DL. 3 UNITS OF REGULAR INSULIN GIVEN SQ ORDERED PER SLIDING SCALE. WILL CONTINUE TO MONITOR PATIENT.
[2022-12-09] MEDS: ASCORBIC ACID 500 MG TABLET GT SCH (08:46)
[2022-12-09] MEDS: PANTOPRAZOLE 40 MG/PACK PACK GT SCH (08:46)
[2022-12-09] MEDS: ZINC SULFATE 220 MG CAPSULE GT SCH (08:46)
[2022-12-09] MEDS: FOLIC ACID 1 MG TABLET GT SCH (08:46)
[2022-12-09] MEDS: CALCIUM CARBONATE (1250) 500 MG TABLET GT SCH ×2 (08:46→16:49)
[2022-12-09] MEDS: MIDODRINE HCL (5MG) 5 MG TABLET GT SCH (08:47)
[2022-12-09] MEDS: PROSOURCE / PROSTAT (PYXIS) 30 ML UDC GT SCH ×2 (08:47→16:49)
[2022-12-09] MEDS: CLOTRIMAZOLE 1% 15 GM TUBE TP SCH ×2 (08:47→16:49)
[2022-12-09] MEDS: THERAHONEY GEL 1.5 OZ TUBE TP SCH (08:48)
[2022-12-09] MEDS: Z GUARD REMEDY 4 OZ OINT TP SCH (08:48)
[2022-12-09] MEDS ORDERED: INSULIN GLARGINE, 100 UNIT/ML CARTRIDGE SQ SCH (09:00)
[2022-12-09] MEDS: HEPARIN SODIUM, PORCINE 5000 UNITS/1 ML VIAL SQ SCH ×2 (09:13→21:57)
[2022-12-09] MEDS: INSULIN GLARGINE, 100 UNIT/ML CARTRIDGE SQ SCH (10:53)
[2022-12-09] MEDS: SOD FERRIC GLUC 125 MG in IV NS 0.9% 100 ML IV SCH (15:42)
[2022-12-09 16:00] VITALS: BP_SYST 123; BP_SYST 142; BP_DIAS 64; BP_DIAS 74
[2022-12-09] MEDS: GLUCERNA 1.2 1,000 ML BOTTLE NG PRN (17:59)
--- NOTE | 2022-12-09 19:00 | NUR ---
RN CLOSING NOTE PATIENT IN BED; AWAKE, A/O X 1 WITH PERIODS OF CONFUSION. STABLE ON ROOM AIR. IN NO ACUTE DISTRESS. NO S/SX OF PAIN OR DISCOMFORT NOTED AT THIS TIME. ON GLUCERNA 1.2 GT FEEDING RUNNING @ 60 CC/HR. NO RESIDUAL NOTED. WITH DASILVA CATHETER IN PLACE DRAINING VIA GRAVITY TO YELLOW URINE OUTPUT. WITH FLEXISEAL TUBE IN PLACE; INTACT. WITH IV ACCESS ON RIGHT AC 20g; INTACT AND PATENT. WITH LEFT UPPER ARM MIDLINE; PATENT, INTACT AND SALINE LOCKED. WITH LEFT HAND SOFT WRIST RESTRAINT IN PLACE; SKIN AND CIRCULATION CHECKED; WNL. SAFETY MEASURES MAINTAINED: HEAD OF BED ELEVATED, CALL LIGHT AND TABLE WITHIN REACH, SIDE RAILS UP X 3, BED IN LOWEST LOCKED POSITION. ENDORSED TO THE LICENSED NUCLEAR OPERATOR FOR CONTINUITY OF CARE.
--- NOTE | 2022-12-09 19:10 | NUR ---
CONTOUR SANDER OPENING NOTE PATIENT AWAKE,CONFUSED. 0N RA 02 SAT 100%, NO S/S OF RESPIRATORY DISTRESS. HOB^, GT FEEDING GLUCERNA 1.2. YOUNG PICC LINE INTACT. F/C DRAINING CLEAR GINI URINE, FLEXI-SEAL IN PLACE WITH SMALL DRAINING SMALL AMOUNT OF DARK STOOL. SAFETY MEASURES IN PLACE, BED LOCKED TO THE LOWEST POSITION, SIDE RAILS UP X4 LEFT WRIST RESTRAIN IN PLACE. CONT. TO MONITOR.
[2022-12-09 21:00] VITALS: BP 117/66
[2022-12-09] MEDS: ATORVASTATIN 10 MG TABLET GT SCH (22:05)
[2022-12-10] MEDS: BLOOD SUGAR DIAGNOSTIC 1 EACH STRIP IN SCH ×5 (00:13→23:20)
[2022-12-10 05:00] VITALS: BP 111/42
[2022-12-10] MEDS: PIPERACILLIN /TAZOBACTAM 3.375 G in IV D5W 100 ML IV SCH ×3 (05:18→21:36)
[2022-12-10] MEDS: INSULIN REGULAR, HUMAN 100 UNIT/ML 3 ML VIAL SQ PRN ×2 (05:59→23:18)
--- NOTE | 2022-12-10 07:05 | NUR ---
BUSINESS AND FINANCIAL COUNSEL CLOSING NOTE PT RESTING IN BED, ASLEEP, A&OX1, VERBAL, ON RA, BREATHING EVEN AND UNLABORED, AFEBRILE, IN STABLE CONDITION, GT INTACT AND PATENT, YOUNG ML C/D/I, RAC 20G C/D/I, PT IS ON IV ATB TX, TOLERATED WELL, ALL DUE MEDS GIVEN PER MD ORDERS, TOLERATED WELL, ALL BASIC NEEDS MET AND ANTICIPATED, ALL SAFETY MEASURES ARE IN PLACE, WILL CONTINUE TO MONITOR
--- NOTE | 2022-12-10 07:40 | NUR ---
RN NOTE RECEIVED PATIENT IN BED RESTING ALERT ORIENTEDX1 VERBALLY RESPONSIVE ON ROOM AIR ON G-TUBE FEEDING GLUCERNA 1.2 60CC/HR CHECKED PLACEMENT IN PLACE,DASILVA CATH IN PLACE,RECTAL TUBE IN PLACE IV SITE IS RIGHT UPPER ARM INTACT PATENT,SAFETY MEASURE IMPLEMENT BED IN LOW POSTIION AND LOCKED HEAD OF THE BED ELEVATED CONTINUE TO MONITOR
[2022-12-10] MEDS: ZINC SULFATE 220 MG CAPSULE GT SCH (08:35)
[2022-12-10] MEDS: ASCORBIC ACID 500 MG TABLET GT SCH (08:35)
[2022-12-10] MEDS: FOLIC ACID 1 MG TABLET GT SCH (08:35)
[2022-12-10] MEDS: PANTOPRAZOLE 40 MG/PACK PACK GT SCH (08:35)
[2022-12-10] MEDS: Z GUARD REMEDY 4 OZ OINT TP SCH (08:36)
[2022-12-10] MEDS: THERAHONEY GEL 1.5 OZ TUBE TP SCH (08:37)
[2022-12-10] MEDS: CLOTRIMAZOLE 1% 15 GM TUBE TP SCH ×2 (08:37→17:00)
[2022-12-10] MEDS: PROSOURCE / PROSTAT (PYXIS) 30 ML UDC GT SCH ×2 (08:39→17:00)
[2022-12-10] MEDS: CALCIUM CARBONATE (1250) 500 MG TABLET GT SCH ×2 (08:39→17:00)
[2022-12-10] MEDS: HEPARIN SODIUM, PORCINE 5000 UNITS/1 ML VIAL SQ SCH (08:40)
[2022-12-10] MEDS: INSULIN GLARGINE, 100 UNIT/ML CARTRIDGE SQ SCH (08:47)
[2022-12-10 13:00] VITALS: BP 136/69
[2022-12-10] MEDS: GLUCERNA 1.2 1,000 ML BOTTLE NG PRN (15:15)
--- NOTE | 2022-12-10 18:50 | NUR ---
RN NOTE PATIENT REMAINS IN BED RESTING ALERT ORIENTEDX1 VERBALLY RESPONSIVE ON ROOM AIR ON G-TUBE FEEDING GLUCERNA 1.2 60CC/HR CHECKED PLACEMENT IN PLACE,DASILVA CATH IN PLACE,RECTAL TUBE IN PLACE IV SITE IS RIGHT UPPER ARM INTACT PATENT,ALL DUE MEDS GIVEN MD ORDERED KEPT CLEAN AND DRY ALL THE TIME ALL NEEDS MET ENDORSE NEXT COMING SHIFT FOR CONTINUATION OF CARE.
--- NOTE | 2022-12-10 19:45 | NUR ---
RN NOTE Received pt in bed, awake, alert, oriented to self only, verbally responsive. Denies pain or discomfort at this time. On room air, well tolerated, no SOB, no acute distress noted, respiration even and unlabored. RAC 20G PIV flushes well, dressing CDI, on SL. Gt in placed, patent and secured, currently infusing Glucerna at 60ml/hr, well tolerated, 0 residual, no N/V. HOB elevated at all times. Aggarwal cath in placed, patent, draining clear yellow urine by gravity. Rectal tube in placed, secured, noted w/ minimal amount output. Safety precaution implemented at all times. Call light within easy reach. Will cont POC.
[2022-12-10 21:00] VITALS: BP 152/72
[2022-12-10] MEDS: ATORVASTATIN 10 MG TABLET GT SCH (21:37)
[2022-12-11 05:00] VITALS: BP 153/77
[2022-12-11] MEDS: PIPERACILLIN /TAZOBACTAM 3.375 G in IV D5W 100 ML IV SCH ×3 (05:03→20:57)
[2022-12-11] MEDS: INSULIN REGULAR, HUMAN 100 UNIT/ML 3 ML VIAL SQ PRN ×3 (05:36→17:25)
[2022-12-11] MEDS: BLOOD SUGAR DIAGNOSTIC 1 EACH STRIP IN SCH ×4 (05:38→23:59)
--- NOTE | 2022-12-11 06:55 | NUR ---
RN NOTE Pt. in bed, asleep, respiration even and unlabored, easily arousable by verbal and tactile stimuli. No evidence of pain or discomfort at this time. On room air, well tolerated, no SOB, no acute distress noted. RAC 20G PIV flushes well, dressing CDI, currently infusing Zosyn at 25ml/hr as ordered. Gt in placed, patent and secured, currently running Glucerna at 60ml/hr, well tolerated, 0 residual, no N/V. HOB elevated at all times. Aggarwal cath in placed, patent, draining clear yellow urine by gravity, taken 1000ml output throughout the shift. Rectal tube in placed, secured, noted w/ 400ml of output throughout the shift. Safety precaution implemented at all times. Call light within easy reach. Will endorse to am shift nurse for YUE.
--- NOTE | 2022-12-11 07:30 | NUR ---
RN OPENING NOTE PATIENT AWAKE,CONFUSED. 0N RA 02 SAT 100%, NO S/S OF RESPIRATORY DISTRESS. HOB^, GT FEEDING GLUCERNA 1.2, 60 ML/HRX 24 HRS. YOUNG PICC LINE INTACT. F/C DRAINING CLEAR GINI URINE, FLEXI-SEAL IN PLACE WITH SMALL DRAINING SMALL AMOUNT OF DARK STOOL. SAFETY MEASURES IN PLACE, BED LOCKED TO THE LOWEST POSITION, SIDE RAILS UP X4 LEFT WRIST RESTRAIN IN PLACE WILL CONTINUE TO MONITOR.
[2022-12-11] MEDS: ASCORBIC ACID 500 MG TABLET GT SCH (10:02)
[2022-12-11] MEDS: FOLIC ACID 1 MG TABLET GT SCH (10:02)
[2022-12-11] MEDS: PROSOURCE / PROSTAT (PYXIS) 30 ML UDC GT SCH ×2 (10:02→16:33)
[2022-12-11] MEDS: ZINC SULFATE 220 MG CAPSULE GT SCH (10:02)
[2022-12-11] MEDS: PANTOPRAZOLE 40 MG/PACK PACK GT SCH (10:02)
[2022-12-11] MEDS: CLOTRIMAZOLE 1% 15 GM TUBE TP SCH ×2 (10:07→16:33)
[2022-12-11] MEDS: Z GUARD REMEDY 4 OZ OINT TP SCH (10:07)
[2022-12-11] MEDS: THERAHONEY GEL 1.5 OZ TUBE TP SCH (10:08)
[2022-12-11] MEDS: CALCIUM CARBONATE (1250) 500 MG TABLET GT SCH ×2 (10:09→16:33)
[2022-12-11] MEDS: INSULIN GLARGINE, 100 UNIT/ML CARTRIDGE SQ SCH (10:40)
[2022-12-11] MEDS: GLUCERNA 1.2 1,000 ML BOTTLE NG PRN (10:43)
[2022-12-11 11:00] VITALS: BP 154/69
[2022-12-11 13:00] VITALS: BP 154/69
--- NOTE | 2022-12-11 19:30 | NUR ---
RN CLOSING NOTE PATIENT AWAKE, CONFUSED. ON ROOM AIR NO S/S OF RESPIRATORY DISTRESS NOTED. G-TUBE FEEDING GLUCERNE RUNNING AT 60 ML/HR, TOLERATING WELL NO RESIDUAL. F/C DRAINING CLOUDY YELLOW URINE. FLEXISEAL IN PLACE DRAINING SMALL AMOUNT. , SAFETY MEASURES IN PLACE, BED LOCKED TO THE LOWEST POSITION. PLAN TO D/C TO SNF. WILL ENDORSE TO PM SHIFT NURSE FOR YUE
--- NOTE | 2022-12-11 20:09 | NUR ---
RECEIVED PATIENT IN BED, ALERT/AWAKE, NO SOB, NO COMPLAIN OF PAIN, HOSTILE, ANGRY, PEG TUBE FEEDING INFUSING WELL, NO VOMITING, RECTAL TUBE IN PLACE, KEPT HOB ELEVATED, ASPIRATION PRECAUTION, KEPT SAFE, WILL CONTINUE TO MONITOR.
[2022-12-11 21:00] VITALS: BP 142/71
[2022-12-11] MEDS: ATORVASTATIN 10 MG TABLET GT SCH (21:41)
--- NOTE | 2022-12-12 | NUR ---
bg 130, NO INSULIN GIVEN
[2022-12-12] MEDS: PIPERACILLIN /TAZOBACTAM 3.375 G in IV D5W 100 ML IV SCH ×3 (04:35→22:10)
[2022-12-12 05:01] VITALS: BP 135/55
[2022-12-12] MEDS: BLOOD SUGAR DIAGNOSTIC 1 EACH STRIP IN SCH ×3 (05:18→17:21)
[2022-12-12] MEDS: INSULIN REGULAR, HUMAN 100 UNIT/ML 3 ML VIAL SQ PRN ×4 (05:20→17:23)
--- NOTE | 2022-12-12 05:53 | NUR ---
ALERT/ORIENTED X1, CONFUSED, HOSTILE, CALLING RN BAD NAMES, WISHING RN , MAKING UP ACCUSATIONS OF ABUSE AND YELLING "STOP HURTING ME," WHILE NURSE IS DOING PATIENT CARE AND GIVING MEDICATION THROUGH PEG TUBE. RECOMMENDS 2 PEOPLE IN ROOM WHILE PROVIDING CARE. HISTORY OF ENCEPHALOPATHY AND ORGANIC BRAIN SYNDROME. PEG TUBE INFUSING WELL, NO VOMITING, NO ABDOMINAL DISTENTION, DASILVA CATHETER DRAINING WELL, RECTAL TUBE DRAINING LIQUID STOOL. ZOSYN FOR UTI, CLEARED FOR DISCHARGE, AWAITING PLACEMENT.
[2022-12-12] MEDS: GLUCERNA 1.2 1,000 ML BOTTLE NG PRN (06:15)
--- NOTE | 2022-12-12 07:15 | NUR ---
RN OPENING NOTE RECEIVED PATIENT IN BED, ALERT/AWAKE, NO SOB, NO COMPLAIN OF PAIN, HOSTILE, ANGRY, G-TUBE FEEDING INFUSING WELL, RECTAL TUBE IN PLACE, DASILVA CATHETER DRAINING WELL. KEPT HOB ELEVATED, ASPIRATION PRECAUTION, WILL CONTINUE TO MONITOR.
[2022-12-12] MEDS: PROSOURCE / PROSTAT (PYXIS) 30 ML UDC GT SCH ×2 (08:28→16:17)
[2022-12-12] MEDS: CLOTRIMAZOLE 1% 15 GM TUBE TP SCH ×2 (08:29→16:17)
[2022-12-12] MEDS: Z GUARD REMEDY 4 OZ OINT TP SCH (08:30)
[2022-12-12] MEDS: THERAHONEY GEL 1.5 OZ TUBE TP SCH (08:31)
[2022-12-12] MEDS: ASCORBIC ACID 500 MG TABLET GT SCH (08:39)
[2022-12-12] MEDS: FOLIC ACID 1 MG TABLET GT SCH (08:39)
[2022-12-12] MEDS: ZINC SULFATE 220 MG CAPSULE GT SCH (08:39)
[2022-12-12] MEDS: CALCIUM CARBONATE (1250) 500 MG TABLET GT SCH ×2 (08:39→16:17)
[2022-12-12] MEDS: PANTOPRAZOLE 40 MG/PACK PACK GT SCH (08:39)
[2022-12-12] MEDS: INSULIN GLARGINE, 100 UNIT/ML CARTRIDGE SQ SCH (09:07)
[2022-12-12 13:00] VITALS: BP 128/61
--- NOTE | 2022-12-12 18:48 | NUR ---
RN CLOSING NOTE PATIENT IN BED, ALERT/AWAKE, NO SOB, NO COMPLAIN OF PAIN, HOSTILE, ANGRY, G-TUBE FEEDING INFUSING WELL, RECTAL TUBE IN PLACE, DASILVA CATHETER DRAINING WELL. KEPT HOB ELEVATED, ASPIRATION PRECAUTION, ALL MEDS ADMINISTERED ON TIME, SAFETY MEASURES IN PLACE, WILL ENDORSE TO THE UPCOMING SHIFT FOR YUE.
--- NOTE | 2022-12-12 19:45 | NUR ---
MS RN OPENING NOTES RECEIVED PATIENT IN BED AWAKE AND ALERT. A/O X 1, CONFUSED. ON ROOM AIR, BREATHING EVEN AND UNLABORED, NO SOB OR DISTRESS NOTED AT THIS TIME. NO S/S OF PAIN NOTED. IV ACCESS RAC #20G, SALINE LOCK, INTACT AND PATENT. YOUNG MIDLINE, DISLODGE. PATIENT ON DASILVA CATH DRAINING YELLOW COLORED URINE. G-TUBE RUNNING GLUCERNA 60ML/HR, TOLERATING WELL. RECTAL TUBE IN PLACE. HOB ELEVATED FOR ASPIRATION PRECAUTION. SAFETY MEASURES IN PLACE WITH BED IN LOWEST LOCKED POSITION. SIDE RAILS UP X 2. CALL LIGHT WITHIN EASY REACH. WILL CONTINUE TO MONITOR THE PATIENT.
[2022-12-12 21:00] VITALS: BP 162/91
[2022-12-12] MEDS: ATORVASTATIN 10 MG TABLET GT SCH (22:10)
[2022-12-13] MEDS: INSULIN REGULAR, HUMAN 100 UNIT/ML 3 ML VIAL SQ PRN ×4 (01:04→17:58)
[2022-12-13] MEDS: BLOOD SUGAR DIAGNOSTIC 1 EACH STRIP IN SCH ×5 (01:05→23:57)
[2022-12-13] MEDS: GLUCERNA 1.2 1,000 ML BOTTLE NG PRN (03:53)
[2022-12-13] MEDS: PIPERACILLIN /TAZOBACTAM 3.375 G in IV D5W 100 ML IV SCH ×3 (04:56→21:19)
[2022-12-13 05:00] VITALS: BP 129/85
--- NOTE | 2022-12-13 07:15 | NUR ---
RN OPENING NOTE RECEIVED PATIENT IN BED, ASLEEP. G-TUBE FEEDING INFUSING WELL GLUCERNA 60ML/HR, RECTAL TUBE IN PLACE, DASILVA CATHETER DRAINING WELL. KEPT HOB ELEVATED, ASPIRATION PRECAUTION, WILL CONTINUE TO MONITOR.
--- NOTE | 2022-12-13 07:40 | NUR ---
MS RN CLOSING NOTES PATIENT IN BED AWAKE AND ALERT. A/O X 1, CONFUSED. ON ROOM AIR, BREATHING EVEN AND UNLABORED, NO SOB OR DISTRESS NOTED AT THIS TIME. NO S/S OF PAIN NOTED. IV ACCESS RAC #20G, SALINE LOCK, INTACT AND PATENT. YOUNG MIDLINE, DISLODGE. PATIENT ON DASILVA CATH [id number] YELLOW COLORED URINE. G-TUBE RUNNING GLUCERNA 60ML/HR, TOLERATING WELL. RECTAL TUBE DRAINED 280CC OUTPUT. HOB ELEVATED FOR ASPIRATION PRECAUTION. SAFETY MEASURES MAINTAINED. WILL ENDORSE TO THE NEXT SHIFT.
[2022-12-13 08:00] VITALS: BP 164/125
[2022-12-13] MEDS: FOLIC ACID 1 MG TABLET GT SCH (08:12)
[2022-12-13] MEDS: ZINC SULFATE 220 MG CAPSULE GT SCH (08:12)
[2022-12-13] MEDS: CALCIUM CARBONATE (1250) 500 MG TABLET GT SCH ×2 (08:12→16:32)
[2022-12-13] MEDS: PANTOPRAZOLE 40 MG/PACK PACK GT SCH (08:12)
[2022-12-13] MEDS: ASCORBIC ACID 500 MG TABLET GT SCH (08:12)
[2022-12-13] MEDS: PROSOURCE / PROSTAT (PYXIS) 30 ML UDC GT SCH ×2 (08:14→16:32)
[2022-12-13] MEDS: INSULIN GLARGINE, 100 UNIT/ML CARTRIDGE SQ SCH (08:15)
[2022-12-13] MEDS: Z GUARD REMEDY 4 OZ OINT TP SCH (08:16)
[2022-12-13] MEDS: CLOTRIMAZOLE 1% 15 GM TUBE TP SCH ×2 (08:16→16:01)
[2022-12-13] MEDS: THERAHONEY GEL 1.5 OZ TUBE TP SCH (08:16)
[2022-12-13 09:45] VITALS: BP 143/82
[2022-12-13 13:00] VITALS: BP 124/83
--- NOTE | 2022-12-13 19:30 | NUR ---
MS RN OPENING NOTE RECEIVED PATIENT FROM AM NURSE; PATIENT IS A/O X 1; STABLE ON ROOM AIR, BREATHING EVENLY AND NO S/S OF DISTRESS NOTED; WITH IV ACCESS AT RAC G#20 AND MIDLINE ACCESS AT YOUNG; ON TUBE FEEDING RUNNING WITH GLUCERNA 1.2 AT 60 ML/HT; WITH FLEXISEAL IN PLACE; ON RESTRAINTS FOR PATIENT'S SAFETY; SAFETY MEASURES IMPLEMENTED, BED LOCKED IN LOWEST POSITION, SIDE RAILS UP X 4, HEAD OF BED ELEVATED; WILL CONTINUE TO MONITOR THROUGHOUT SHIFT
[2022-12-13 21:00] VITALS: BP 153/87
[2022-12-13] MEDS: ATORVASTATIN 10 MG TABLET GT SCH (21:29)
[2022-12-14] MEDS: INSULIN REGULAR, HUMAN 100 UNIT/ML 3 ML VIAL SQ PRN ×6 (00:02→23:57)
[2022-12-14] MEDS: GLUCERNA 1.2 1,000 ML BOTTLE NG PRN (02:11)
[2022-12-14] MEDS: PIPERACILLIN /TAZOBACTAM 3.375 G in IV D5W 100 ML IV SCH ×3 (04:35→21:06)
[2022-12-14] MEDS: BLOOD SUGAR DIAGNOSTIC 1 EACH STRIP IN SCH ×4 (05:42→23:50)
--- NOTE | 2022-12-14 06:50 | NUR ---
MS RN CLOSING NOTE PATIENT IS A/O X 1; STABLE ON ROOM AIR, BREATHING EVENLY AND NO S/S OF DISTRESS NOTED; WITH IV ACCESS AT RAC G#20 AND MIDLINE ACCESS AT YOUNG RUNNING WITH ZOSYN AT 25 ML/HR; ON TUBE FEEDING RUNNING WITH GLUCERNA 1.2 AT 60 ML/HR; WITH DASILVA CATHETER AND FLEXISEAL IN PLACE; ON RESTRAINTS FOR PATIENT'S SAFETY; ADMINISTERED MEDICATIONS PRESCRIBED; PATIENT'S NEEDS ATTENDED; MONITORED PATIENT ACCORDINGLY; SAFETY MEASURES IMPLEMENTED, BED LOCKED IN LOWEST POSITION, SIDE RAILS UP X 4, HEAD OF BED ELEVATED; WILL ENDORSE TO AM NURSE FOR YUE.
[2022-12-14 07:11] LABS: BASOPHILS % (AUTO) 0.4 % (0.0-2.0); EOSINOPHILS % (AUTO) 1.2 % (0.0-6.0); HEMATOCRIT 36 % (33-45); HEMOGLOBIN 11.4 g/dL (11.5-14.8); LYMPHOCYTES # (AUTO) 1.1 K/uL (0.8-4.8); LYMPHOCYTES % (AUTO) 11.6 % (20.0-44.0); MEAN CORPUSCULAR HGB CONC 32 g/dl (31.0-36.0); MEAN CORPUSCULAR VOLUME 90 fL (82-100); MONOCYTES # (AUTO) 0.8 K/uL (0.1-1.30); MONOCYTES % (AUTO) 8.8 % (2.0-12.0); NEUTROPHILS # (AUTO) 7.4 K/uL (1.8-8.9); PLATELET COUNT (AUTO) 413 K/uL (150-450); RED BLOOD CELL COUNT(AUTO) 3.97 MIL/uL (4.0-5.2); WHITE BLOOD COUNT (AUTO) 9.5 K/uL (4.3-11.0)
[2022-12-14 07:37] LABS: CALCIUM, SERUM 9.4 mg/dL (8.5-10.1); CARBON DIOXIDE 28 mmol/L (21-32); CHLORIDE 92 mmol/L (98-107); CREATININE 0.5 mg/dL (0.6-1.3); GLUCOSE 259 mg/dL (74-106); POTASSIUM 4.7 mmol/L (3.5-5.1); SODIUM SERUM 131 mmol/L (136-145); UREA NITROGEN, BLOOD 13 mg/dL (7-18)
[2022-12-14] MEDS: CLOTRIMAZOLE 1% 15 GM TUBE TP SCH ×2 (09:00→17:00)
[2022-12-14] MEDS: Z GUARD REMEDY 4 OZ OINT TP SCH (09:00)
[2022-12-14] MEDS: THERAHONEY GEL 1.5 OZ TUBE TP SCH (09:00)
[2022-12-14] MEDS: PROSOURCE / PROSTAT (PYXIS) 30 ML UDC GT SCH ×2 (09:00→17:00)
[2022-12-14] MEDS: INSULIN GLARGINE, 100 UNIT/ML CARTRIDGE SQ SCH (11:23)
[2022-12-14] MEDS: PANTOPRAZOLE 40 MG/PACK PACK GT SCH (11:24)
[2022-12-14] MEDS: FOLIC ACID 1 MG TABLET GT SCH (11:24)
[2022-12-14] MEDS: ASCORBIC ACID 500 MG TABLET GT SCH (11:25)
[2022-12-14] MEDS: ZINC SULFATE 220 MG CAPSULE GT SCH (11:25)
[2022-12-14] MEDS: CALCIUM CARBONATE (1250) 500 MG TABLET GT SCH ×2 (11:26→19:04)
--- NOTE | 2022-12-14 16:59 | NUR ---
RN NOTE COMPLETED COVID TEST, SENT TO LAB.
--- NOTE | 2022-12-14 20:00 | NUR ---
MS FRONT OFFICE JAVA DEVELOPER OPENING NOTE PATIENT SLEEPING IN BED, A/O X1, EASILY AROUSABLE NO SOB NO DISTRESS NOTED, NO S/S OF PAIN NOTED AT THIS TIME, PT ON GT FEEDING GLUCERNA INFUSING 60ML/HR, 0ML RESIDUAL NOTED, KEPT HOB ELEVATED, NO S/S OF ASPIRATION NOTED AT THIS TIME, PATIENT ON LEFT SOFT WRIST RESTRAINTS, DASILVA CATH AND FLEXI SEAL INTACT AND PATENT, FC DRAINING CLOUDY WITH SEDIMENT URINE, AND FLEXISEAL WITH LIQUIDY STOOL DARK BROWNISH COLOR, PT HAS LEFT UPPER ARM PICC LINE, NO INFILTRATION NOTED,ALSO HAS RIGHT IV AC SALINE LOCK, NO INFILTRATION NOTED, SIDE RAILS UP CALL LIGHT WITHIN REACH, WILL CONTINUE TO MONITOR
--- NOTE | 2022-12-14 20:10 | NUR ---
MS RN CLOSING NOTE PATIENT IS A/O X 1; STABLE ON ROOM AIR, BREATHING EVENLY AND NO S/S OF DISTRESS NOTED; WITH IV ACCESS AT RAC G#20 AND MIDLINE ACCESS AT YOUNG SL. ON TUBE FEEDING RUNNING WITH GLUCERNA 1.2 AT 60 ML/HR; WITH DASILVA CATHETER AND FLEXISEAL IN PLACE; ON RESTRAINTS FOR PATIENT'S SAFETY; ADMINISTERED MEDICATIONS PRESCRIBED; PATIENT'S NEEDS ATTENDED; MONITORED PATIENT ACCORDINGLY; SAFETY MEASURES IMPLEMENTED, BED LOCKED IN LOWEST POSITION, SIDE RAILS UP X 4, HEAD OF BED ELEVATED; WILL ENDORSE TO PM NURSE FOR YUE.
[2022-12-14] MEDS: ACETAMINOPHEN 650 MG/20.3 ML UDC GT PRN (21:34)
[2022-12-14] MEDS: ATORVASTATIN 10 MG TABLET GT SCH (21:34)
[2022-12-15] MEDS: GLUCERNA 1.2 1,000 ML BOTTLE NG PRN (02:23)
[2022-12-15] MEDS: PIPERACILLIN /TAZOBACTAM 3.375 G in IV D5W 100 ML IV SCH ×2 (04:08→13:00)
[2022-12-15] MEDS: BLOOD SUGAR DIAGNOSTIC 1 EACH STRIP IN SCH ×2 (05:43→11:14)
[2022-12-15] MEDS: INSULIN REGULAR, HUMAN 100 UNIT/ML 3 ML VIAL SQ PRN ×2 (05:50→11:19)
--- NOTE | 2022-12-15 07:04 | NUR ---
MS WEB DEVELOPMENT INTERN CLOSING NOTE PATIENT IS A/O X 1; STABLE ON ROOM AIR, BREATHING EVENLY AND NO S/S OF DISTRESS NOTED; WITH IV ACCESS AT RAC G#20 AND MIDLINE ACCESS AT YOUNG SL. ON TUBE FEEDING RUNNING WITH GLUCERNA 1.2 AT 60 ML/HR; WITH DASILVA CATHETER AND FLEXISEAL IN PLACE; ON RESTRAINTS FOR PATIENT'S SAFETY; ADMINISTERED MEDICATIONS PRESCRIBED; PATIENT'S NEEDS ATTENDED; MONITORED PATIENT ACCORDINGLY; SAFETY MEASURES IMPLEMENTED, BED LOCKED IN LOWEST POSITION, SIDE RAILS UP X 2, HEAD OF BED ELEVATED; WILL ENDORSE TO AM NURSE FOR YUE.
--- NOTE | 2022-12-15 07:15 | NUR ---
RESTAURANT SHIFT LEADER OPENING NOTES Received pt asleep in bed. No signs of pain or discomfort at his time. Pt is on RA and tolerating it well. IV access on YOUNG PICC line. GT is patent and intact running Glucerna @ 60cc/hr. HOB elevated to 30-45 degrees. Siderails up at all times. Call light within reach. Will continue to monitor.
[2022-12-15] MEDS: CALCIUM CARBONATE (1250) 500 MG TABLET GT SCH (08:50)
[2022-12-15] MEDS: FOLIC ACID 1 MG TABLET GT SCH (08:50)
[2022-12-15] MEDS: ASCORBIC ACID 500 MG TABLET GT SCH (08:50)
[2022-12-15] MEDS: ZINC SULFATE 220 MG CAPSULE GT SCH (08:50)
[2022-12-15] MEDS: PANTOPRAZOLE 40 MG/PACK PACK GT SCH (08:51)
[2022-12-15] MEDS: PROSOURCE / PROSTAT (PYXIS) 30 ML UDC GT SCH (08:51)
[2022-12-15] MEDS: INSULIN GLARGINE, 100 UNIT/ML CARTRIDGE SQ SCH (08:54)
[2022-12-15] MEDS: Z GUARD REMEDY 4 OZ OINT TP SCH (08:55)
[2022-12-15] MEDS: CLOTRIMAZOLE 1% 15 GM TUBE TP SCH (08:55)
[2022-12-15] MEDS: THERAHONEY GEL 1.5 OZ TUBE TP SCH (08:55)
--- NOTE | 2022-12-15 12:28 | NUR ---
BANK SALES AND SERVICE MANAGER NOTES Adriana continuous pillowcase cutter called to inform that pt is oging to be discharged to [facility] and leaf size picker time is between [phone]. Facility called and gave report to EDGARDO Hernandez.
--- NOTE | 2022-12-15 15:10 | NUR ---
C DEVELOPER NOTES [facility] ambulance company came to cigar packer and picker pt to bring her to [facility]. IV access kept due to pt continuing IV ATB at the facility. Pt refused to take any picture of her skin. Transferred from bed to [facility] safely.
[2022-12-16] MEDS ORDERED: INSULIN GLARGINE, 100 UNIT/ML CARTRIDGE SQ SCH (09:00)
== END 2022-12-15 15:10 | DRG 871 ==
LOC: ER 12-03 00:08 → ICU 12-03 04:10 → MEDSG1 12-05 17:18
PROVIDERS: ADMIT Internal Medicine; ATTEND Internal Medicine
PROC: 05HY33Z Insertion of Infusion Device into Upper Vein, Percutaneous Approach (ICD-10-PCS; principal; 2022-12-03)
PROC: 30233N1 Transfusion of Nonautologous Red Blood Cells into Peripheral Vein, Percutaneous Approach (ICD-10-PCS; 2022-12-05)
DX: A41.9 Sepsis, unspecified organism (principal); N17.0 Acute kidney failure with tubular necrosis; R65.21 Severe sepsis with septic shock; E87.20 Acidosis, unspecified; N39.0 Urinary tract infection, site not specified; I69.351 Hemiplegia and hemiparesis following cerebral infarction affecting right dominant side; G93.40 Encephalopathy, unspecified; I95.89 Other hypotension; D50.9 Iron deficiency anemia, unspecified; E11.65 Type 2 diabetes mellitus with hyperglycemia; E78.5 Hyperlipidemia, unspecified; G62.9 Polyneuropathy, unspecified; E87.6 Hypokalemia; I10 Essential (primary) hypertension; L30.4 Erythema intertrigo; R13.10 Dysphagia, unspecified; S30.0XXA Contusion of lower back and pelvis, initial encounter; X58.XXXA Exposure to other specified factors, initial encounter; Y93.9 Activity, unspecified; Y92.129 Unspecified place in nursing home as the place of occurrence of the external cause; Z79.4 Long term (current) use of insulin; Z79.84 Long term (current) use of oral hypoglycemic drugs; B96.4 Proteus (mirabilis) (morganii) as the cause of diseases classified elsewhere; Z93.1 Gastrostomy status; Z79.899 Other long term (current) drug therapy; R23.4 Changes in skin texture; K21.9 Gastro-esophageal reflux disease without esophagitis; Z20.822 Contact with and (suspected) exposure to COVID-19; Z91.040 Latex allergy status; Z88.5 Allergy status to narcotic agent; Z88.7 Allergy status to serum and vaccine; Z91.048 Other nonmedicinal substance allergy status
CPT/HCPCS: 36415; 71045-TC; 80048-TC; 80076-TC; 81001; 82962-TC; 83540-TC; 83605-TC; 83735-TC; 83880; 84484-TC; 85025-TC; 85730-TC; 86850-TC; 87040-TC; 87086-TC; 93307-TC; A4223; C9803; G0378; J0456; J0696; J1644; J1815; J2543; J2916; J3480; J7030; J7040; J7050; J7060; P9016; P9047